=== PATIENT | female | born 1960 | race Two or more races ===

== ENCOUNTER 2021-04-12 05:46 | Day surgery (SDC) | payer OTHER ==
[~2021-04-12 05:46] MED LIST: D3 + K2 DOTS 11 EACH PO; LEVO-T125 MCG PO; TENORMIN50 M1 PO
[2021-04-12] MEDS ORDERED: MORGIDOX100 MG PO (08:56)
== END 2021-04-12 15:40 | disposition home or self-care (01) ==
LOC: CIR.AMB 05:46
PROVIDERS: ATTEND Obstetrics & Gynecology
DX: N84.0 Polyp of corpus uteri (principal); Z20.822 Contact with and (suspected) exposure to COVID-19